=== PATIENT | male | born 1960 | race Caucasian/White ===

== ENCOUNTER 2024-06-01 09:00 | Inpatient (IN) | payer MEDICAID, OTHER ==
[2024-06-01] VITALS (7 sets, daily range): BP systolic 113–143; BP diastolic 67–105; PULSE 72–100; RESP 11–19; TEMP 98; O2SAT 95–98
[~2024-06-01] VITALS: Ht 195.6 cm; Wt 88.4 kg
[~2024-06-01 09:00] MED LIST: AMLO1TAB22 PO; ATOR10TA PO; HYDR1TAB97 PO; LOSA-534 PO; TAMS-35 PO
[2024-06-01] MEDS ORDERED: fentaNYL CITRATE 100 MCG/2 ML VL ONE (10:48)
[2024-06-01] MEDS ORDERED: LIDOCAINE 2% (LOCAL ANESTH.) PF 5ml SDV ONE (10:48)
[2024-06-01] MEDS ORDERED: SUGAMMADEX 200mg/2ml Vial (100MG/ML) IV ONE (10:48)
[2024-06-01] MEDS ORDERED: PROPOFOL 10 MG/ML 20 ML IV ONE (10:48)
[2024-06-01] MEDS ORDERED: ROCURONIUM 10MG/ML 10ML VIAL IV ONE (10:48)
[2024-06-01] MEDS ORDERED: GLYCOPYRROLATE 0.2 MG/ML 1ML VIAL ONE (10:48)
[2024-06-01] MEDS ORDERED: ONDANSETRON HCL 4 MG/2 ML VIAL ONE (10:48)
[2024-06-01] MEDS ORDERED: DexAMETHasone SOD PHOS 10MG/1ML VIAL INJ ONE (10:48)
[2024-06-01] MEDS ORDERED: KETOROLAC TROMETH 30 MG/ML 1ML VIAL ONE (10:48)
[2024-06-01] MEDS: CIPROFLOXACIN 400MG/200ML 200 ML IV ONE (10:52)
[2024-06-01] MEDS ORDERED: ePHEDrine SULFATE 50 MG/ML AMP ONE (11:22)
[2024-06-01] MEDS ORDERED: ESMOLOL HCL 10 ML IV ONE (12:11)
--- NOTE | 2024-06-01 12:39 | POSTOP ---
Post-Operative Note Post-Operative Note Preop Diagnosis Left renal calculus, 2.5 cm Left ureteral stent Postop Diagnosis: Same Left retroperitoneal ureteral extravasation Operation performed Left ureteroscopy/pyeloscopy with laser lithotripsy and vacuum suction removal of stones Cystoscopy with left retrograde pyelogram Specimen Left renal calculi fragments Anesthesia: General Anesthesiologist: Davian Stovall, CHRISTMAS [employer]AD[employer] Surgeon Stephen Driver Complications & Mgmt The procedure for the kidney stone management was uneventful. Post treatment stent placement resulted in retroperitoneal extravasation and loss of access. Postoperatively patient will be consulted for left nephrostomy tube placement and possible left antegrade stent placement per Interventional Radiology Additional Remarks Left renal calculus was successfully managed with CVAC laser lithotripsy Date 06/01/24 Time 12:35 STEPHEN DRIVER MD Jun 01, 2024 12:38
[2024-06-01] MEDS ORDERED: NALOXONE HCL 0.4 MG/ML VIAL IV PRN (12:45)
[2024-06-01] MEDS ORDERED: oxyCODONE HCL 5MG TAB PO PRN (12:45)
[2024-06-01] MEDS ORDERED: FLUMAZENIL 0.1 MG/ML INJ 10ML MDV IV PRN (12:45)
[2024-06-01] MEDS ORDERED: fentaNYL CITRATE 100 MCG/2 ML VL IV PRN (12:45)
[2024-06-01] MEDS ORDERED: ONDANSETRON HCL 4 MG/2 ML VIAL IV PRN (12:45)
[2024-06-01] MEDS ORDERED: ePHEDrine SULFATE 50 MG/ML AMP IV PRN (12:45)
[2024-06-01] MEDS ORDERED: NITROGLYCERIN 0.4 MG SL TAB SL PRN (12:45)
[2024-06-01] MEDS ORDERED: hydrALAZINE HCL 20 MG/ML VL IV PRN (12:45)
[2024-06-01] MEDS ORDERED: MORPHINE SULFATE INJ 2 MG/ml SYRG IV PRN (12:45)
[2024-06-01] MEDS: HYDROmorphone HCL 2 MG/ML VL/or syr IV PRN ×2 (13:12→22:42)
--- NOTE | 2024-06-01 13:30 | DVH ---
Exam: CT CT AB PEL WO CON-NO ORAL OR IV History: left retrograde extravasation Comparison Study: None Technique: Multidetector spiral CT of the abdomen and pelvis was performed from lung bases to pubic symphysis. Imaging was performed without IV contrast. Axial, coronal and sagittal multiplanar reform ats were obtained from the axial data set by the technologist. Radiation dose : Abdomen/Pelvis: CTDIvol 11 mGy, DLP 635.15 mGy*cm. Findings: Evaluation of solid organs is limited due to lack of intravenous contrast use. Lung Bases: No acute or significant lung base finding. Normal heart size. No pleural or pericardial effusion. Liver: Multiple hepatic cysts. Gallbladder and biliary Tree: Unremarkable Spleen: Unremarkable Pancreas: The pancreas is grossly normal in appearance. Adrenal Glands: Unremarkable Kidneys: Moderate to severe left hydronephrosis. Extravasation of contrast tracking along the left ur eter. Small amount of air in the left collecting system. Right kidney appears unremarkable. Bladder: Bladder is decompressed with a Vaz catheter and cannot be adequately assessed. Bowel: The stomach is grossly normal in appearance. Small bowel and colon are normal in caliber and d istribution. Normal appendix is visualized in the right lower quadrant without findings of appendici tis. Ascites: Absent Lymphadenopathy: No mesenteric, retroperitoneal or periportal lymphadenopathy. Abdominal wall and Mesentery: Unremarkable. Vasculature: The visualized abdominal aorta is normal in size and caliber. There is extensive athero sclerotic calcification of the aorta and its branches. Evaluation of abdominal and pelvic vessels is limited due to lack of intravenous contrast. Pelvic Organs: Unremarkable Musculoskeletal: Levoscoliosis with associated degenerative disease. IMPRESSION: 1. Moderate to severe left hydronephrosis. Extravasated contrast along the course of the left ureter suggests injury/leak. Clinical correlation and continued follow-up is recommended. Consider nephrost prasanna tube placement wall ureter/collecting system is healing. Radiation optimization: All CT scans at this facility use at least one of these dose optimization sammy hniques: Automated exposure control mA and/or kV adjustment per patient size (includes targeted exams where dose is matched to clinical indication) or iterative reconstruction. HS:Y
[2024-06-01] MEDS ORDERED: KETAMINE 50mg/ML 1ml syringe IV ONE (13:56)
[2024-06-01] MEDS: IODIXANOL 320MG/ML 100ML BTL IV ONE (15:12)
[2024-06-01] MEDS: MIDAZOLAM HCL 2MG/2ML 2ml VIAL (1mg/ml) ONE (16:31)
[2024-06-01] MEDS: fentaNYL CITRATE 100 MCG/2 ML VL ONE (16:31)
--- NOTE | 2024-06-01 16:34 | DVH ---
C-ARM FLUOROSCOPY: PROCEDURE: Left lithotripsy FLUOROSCOPY TIME: : 57.0 seconds DAP: 38.24 mgy FINDINGS: Spot intraoperative C arm radiographs demonstrating left lithotripsy. IMPRESSION: Please refer to surgical report for detailed findings.
[2024-06-01] MEDS: LIDOCAINE 2%HCL (LOCAL ANESTH.) INJ 20ML MDV ONE (16:37)
--- NOTE | 2024-06-01 17:23 | DVHINCON2 ---
Date of service: Jun 01, 2024 Referring Physician Hospitalist Reason for Consultation Left ureteral injury resulting in extravasation History of Present Illness Patient underwent left ureteroscopy/pyelosocpy with CVAC laser lithotripsy (with suction). Surgery proceeded well and patient is stonefree. During stent placement, guidewire access was lost and pulled out. I could not replace the guidewire due to extravasation of contrast due to proximal ureteral injury. Patient is admtted for radiology consultation and IR service for left PNT placement. Past Medical History Kidney stones Past Surgical History Left URSLL CVAC lithotrispy today. Previous cystoscopy with stent placement and left ESWL Allergies: Coded Allergies: NO KNOWN ALLERGIES (Unverified , 05/31/24) Home Meds Reported Medications Atorvastatin Calcium (Lipitor) Unknown Strength Tab, PO DAILY, TAB 05/31/24 Amlodipine Besylate (Amlodipine Besylate) Unknown Strength Tab, PO DAILY, TAB 05/31/24 Hydrocodone-Acetaminophen (Hydrocodone/Acetaminophen 5-325 mg) 1 Tab Tab, 1 TAB PO PRN, TAB 05/31/24 Tamsulosin Hcl (Flomax) 0.4 Mg Cap, 0.4 MG PO DAILY, CAP 05/31/24 Losartan Potassium (Losartan Potassium) 50 Mg Tab, 50 MG PO DAILY, TAB 05/31/24 Current Medications Current Medications Medications (Trade) Dose Ordered Sig/Emmy Route PRN Reason Start Time Stop Time Status Last Admin Nitroglycerin (Ntrostat Sublingual) 0.4 mg Q5MINP PRN SL FOR CHEST PAIN 06/01/24 12:45 Morphine Sulfate 2 mg Q30M PRN IV FOR CHEST PAIN 06/01/24 12:45 Ondansetron HCl (Zofran) 4 mg ONCE PRN IV NAUSEA / VOMITING 06/01/24 12:45 06/01/24 12:50 DC Naloxone HCl (Narcan) 0.4 mg Q10M PRN IV NARCOTIC REVERSAL 06/01/24 12:45 06/01/24 13:06 DC Flumazenil (Romazicon Injection) 0.2 mg ONCE PRN IV BENZODIAZEPINE REVERSAL 06/01/24 12:45 06/01/24 12:49 DC Hydralazine HCl (Apresoline Injection) 5 mg Q10M PRN IV SBP>160 06/01/24 12:45 06/01/24 13:36 DC Ephedrine Sulfate (ePHEDrine SULFATE) 10 mg Q10M PRN IV SBP LESS THAN 90 06/01/24 12:45 06/01/24 13:26 DC Fentanyl Citrate 25 mcg Q1HP PRN IV BREAKTHROUGH PAIN (7-10) 06/01/24 12:45 06/01/24 12:49 DC Hydromorphone HCl (Dilaudid Injection) 0.5 mg Q10M PRN IV SEVERE PAIN (7-10 PAIN SCALE) 06/01/24 12:45 06/01/24 13:26 DC Oxycodone HCl 10 mg ONCE PRN PO MODERATE PAIN (4-6 PAIN SCALE) 06/01/24 12:45 06/01/24 13:00 DC Review of Systems Left flank pain Vital Signs Vital Signs Date Time Temp Pulse Resp B/P (MAP) Pulse Ox O2 Delivery O2 Flow Rate FiO2 06/01/24 10:08 97.7 77 20 158/98 (118) 97 97.7 Physical Exam Vaz in place with CBI in progress Labs/Diagnostic Data Labs Test 06/01/24 15:59 Range/Units PATIENT: ADAM SEBASTIAN ACCT: [id number] UNIT: [id number] : 1960 LOC: OVERFLOW ROOM / BED: [address] [place] [address] / A AGE / SEX: 64 / M ADM STATUS: ADM IN SERVICE 1240 ORDERING PHYSICIAN: STEPHEN DRIVER MD PROCEDURE(s): ABPL - CT AB PEL WO CON-NO ORAL OR IV REASON: left retrograde extravasation ORDER NUMBER(s): [id number], ACCESSION NUMBER(s): [id number] Exam: CT CT AB PEL WO CON-NO ORAL OR IV History: left retrograde extravasation Comparison Study: None Technique: Multidetector spiral CT of the abdomen and pelvis was performed from lung bases to pubic symphysis. Imaging was performed without IV contrast. Axial, coronal and sagittal multiplanar reformats were obtained from the axial data set by the technologist. Radiation dose : Abdomen/Pelvis: CTDIvol 11 mGy, DLP 635.15 mGy*cm. Findings: Evaluation of solid organs is limited due to lack of intravenous contrast use. Lung Bases: No acute or significant lung base finding. Normal heart size. No pleural or pericardial effusion. Liver: Multiple hepatic cysts. Gallbladder and biliary Tree: Unremarkable Spleen: Unremarkable Pancreas: The pancreas is grossly normal in appearance. Adrenal Glands: Unremarkable Kidneys: Moderate to severe left hydronephrosis. Extravasation of contrast tracking along the left ureter. Small amount of air in the left collecting sy stem. Right kidney appears unremarkable. Bladder: Bladder is decompressed with a Vaz catheter and cannot be adequately assessed. Bowel: The stomach is grossly normal in appearance. Small bowel and colon are normal in caliber and distribution. Normal appendix is visualized in the right lower quadrant without findings of appendicitis. Ascites: Absent Lymphadenopathy: No mesenteric, retroperitoneal or periportal lymphadenopathy. Abdominal wall and Mesentery: Unremarkable. Vasculature: The visualized abdominal aorta is normal in size and caliber. There is extensive atherosclerotic calcification of the aorta and its branches. Evaluation of abdominal and pelvic vessels is limited due to lack of intravenous contrast. Pelvic Organs: Unremarkable Musculoskeletal: Levoscoliosis with associated degenerative disease. IMPRESSION: 1. Moderate to severe left hydronephrosis. Extravasated contrast along the course of the left ureter suggests injury/leak. Clinical correlation and continued follow-up is recommended. Consider nephrostomy tube placement wall ureter/collecting system is healing. Radiation optimization: All CT scans at this facility use at least one of these dose optimization techniques: Automated exposure control mA and/or kV adjustment per patient size (includes targeted exams where dose is matched to clinical indication) or iterative reconstruction. HS:Y ATED BY: JOSÉ MIGUEL NATION MD DICTATED DATE/TIME: 06/01/24 1327 SIGNED BY: JOSÉ MIGUEL NATION MD SIGNED DATE/TIME: 06/01/24 1327 CC: Assessment Left renal stone, s/p lithotripsy Left ureteral extravasation Left hydronephrosis, severe Plan/Recommendation Left PNT, possible antegrade ureteral stent placement per IR service Plan discussed with: Patient, Other STEPHEN DRIVER MD Jun 01, 2024 17:23
[2024-06-01] MEDS: hydrALAZINE HCL 20 MG/ML VL ONE (17:28)
[2024-06-01] MEDS: HYDROmorphone HCL 2 MG/ML VL/or syr ONE (17:29)
[2024-06-01] MEDS ORDERED: LIDOCAINE 2% TOPICAL JELLY 5 ML URJT TOP PRN (18:45)
--- NOTE | 2024-06-01 20:22 | DVH ---
XY PERCUTANEOUS NEPHROSTOMY, HISTORY: PERC DRAIN INSERTION PROCEDURE: Informed consent was obtained. The patient was placed on the fluoroscopic table in a prone position and IV sedation administered. The left flank was prepped with chlorhexidine which was allow ed to dry and draped in the usual sterile fashion. Time out was performed and the soft tissues infilt rated with 1% lidocaine local anesthetic. A 21 gauge Accu Stick needle was then advanced under ultras ound guidance from a posterolateral approach into the upper pole calyx, and a small amount of contras t was injected under fluoroscopy to confirm positioning. Over a mandril wire, exchange was made to a non-vascular access set, through which was advanced an 0.035 wire. Wire and catheter were advanced do wn the ureter and into the bladder. Following serial dilation, an 8 [place] Islander 24 cm nephroureteral stent was placed. An antegrade nephrostogram was performed. The catheter was secured in place and connecte d to gravity drainage. A sterile dressing was applied. No immediate complication was identified. DAP 6.62 FLUOROSCOPY TIME: 4.9 minutes. CONTRAST USED: 15 mL. SEDATION: Dr. Gaby Roman was personally responsible for the administration of moderate sedation during the procedure performed, including the use of an independent trained observer who had no other duties during the procedure. The drugs utilized were IV fentanyl and versed (see nursing log for details). The total time of supervision by the attending physician was approximately 60 minutes. FINDINGS: Mild to moderate dilation of the left renal collecting system. Irregular contour of the ur eter which could be from injury. Placement of a 8 [place] Islander x 24 cm nephroureteral stent via an upper po le access into the left kidney. IMPRESSION: Placement of an 8 [place] Islander x 24 cm nephroureteral stent via an upper pole access into the left kidney. Irregular contour of the ureter which could be from injury.
--- NOTE | 2024-06-01 20:22 | DVH ---
XY PERCUTANEOUS NEPHROSTOMY, HISTORY: PERC DRAIN INSERTION PROCEDURE: Informed consent was obtained. The patient was placed on the fluoroscopic table in a prone position and IV sedation administered. The left flank was prepped with chlorhexidine which was allow ed to dry and draped in the usual sterile fashion. Time out was performed and the soft tissues infilt rated with 1% lidocaine local anesthetic. A 21 gauge Accu Stick needle was then advanced under ultras ound guidance from a posterolateral approach into the upper pole calyx, and a small amount of contras t was injected under fluoroscopy to confirm positioning. Over a mandril wire, exchange was made to a non-vascular access set, through which was advanced an 0.035 wire. Wire and catheter were advanced do wn the ureter and into the bladder. Following serial dilation, an 8 Nigerien 24 cm nephroureteral stent was placed. An antegrade nephrostogram was performed. The catheter was secured in place and connecte d to gravity drainage. A sterile dressing was applied. No immediate complication was identified. DAP 6.62 FLUOROSCOPY TIME: 4.9 minutes. CONTRAST USED: 15 mL. SEDATION: Dr. Gaby Roman was personally responsible for the administration of moderate sedation during the procedure performed, including the use of an independent trained observer who had no other duties during the procedure. The drugs utilized were IV fentanyl and versed (see nursing log for details). The total time of supervision by the attending physician was approximately 60 minutes. FINDINGS: Mild to moderate dilation of the left renal collecting system. Irregular contour of the ur eter which could be from injury. Placement of a 8 Nigerien x 24 cm nephroureteral stent via an upper po le access into the left kidney. IMPRESSION: Placement of an 8 Nigerien x 24 cm nephroureteral stent via an upper pole access into the left kidney. Irregular contour of the ureter which could be from injury.
[2024-06-02] VITALS (9 sets, daily range): BP systolic 124–172; BP diastolic 70–98; PULSE 75–89; RESP 13–20; TEMP 97.3–98.9; O2SAT 93–100
[2024-06-02] MEDS: HYDROcodone-ACET 10/325MG TAB PO PRN (15:55)
--- NOTE | 2024-06-02 16:58 | DVHHP2 ---
Review of Systems Allergies: Coded Allergies: NO KNOWN ALLERGIES (Unverified , 05/31/24) Medications Current Medications Medications Dose Ordered Sig/Emmy Route Start Time Stop Time Status Last Admin Dose Admin Nitroglycerin 0.4 mg Q5MINP PRN SL 06/01/24 12:45 Morphine Sulfate 2 mg Q30M PRN IV 06/01/24 12:45 Lidocaine HCl 5 ml Q8HPRN PRN TOP 06/01/24 18:45 Cefazolin Sodium 50 ml @ 100 mls/hr Q8HR IV 06/02/24 22:00 Acetaminophen/ Hydrocodone Bitart 1 tab Q6HP PRN PO 06/02/24 15:00 06/02/24 15:55 1 TAB Exam Vital Signs Vital Signs Date Time Temp Pulse Resp B/P (MAP) Pulse Ox O2 Delivery O2 Flow Rate FiO2 06/02/24 12:59 98.9 77 20 155/89 (111) 94 98.9 06/02/24 12:32 Mask 10.0 100 Labs/Xrays Labs Test 06/01/24 15:59 Range/Units Assessment/Plan Assessment/Plan SEE DICTATED NOTE Plan discussed with: Patient Date of Service: Jun 02, 2024 Billing Provider: MONA ZUNIGA MD Common Visit Codes: 51090-[id number] INP/OBS CARE (HIGH) Secondary Visit Codes: [id number] CARE PLAN 30 MINUTES MONA ZUNIGA MD Jun 02, 2024 16:58
--- NOTE | 2024-06-02 17:12 | DVHHP ---
ADMIT DATE: 06/02/2024 HISTORY OF PRESENT ILLNESS: The patient is a 64-year-old gentleman who was admitted after he had a cystoscopy with left retrograde pyelogram, laser lithotripsy and subsequent left retroperitoneal and ureteral extravasation. The patient at this time denies any significant pain. No chest pain. No shortness of breath. No nausea or vomiting. REVIEW OF SYSTEMS: Review of rest of systems is otherwise currently negative. PAST MEDICAL HISTORY: Significant for hypertension, hyperlipidemia. MEDICATIONS: He takes amlodipine, losartan and atorvastatin. ALLERGIES: No known drug allergies. SOCIAL HISTORY: He quit smoking, but vapes. Denies alcohol intake. FAMILY HISTORY: Negative. PHYSICAL EXAMINATION: GENERAL: The patient is awake, alert. VITAL SIGNS: Temperature of 98.9, pulse 77 per minute, blood pressure 155/98. SHEENT: Unremarkable. NECK: There is no JVD, no pedal edema. LUNGS: Equal bilaterally. No added sounds. CARDIOVASCULAR: S1, S2 is regular. No murmurs. ABDOMEN: Soft. There is no organomegaly. NEUROLOGIC: Nonfocal. GENITOURINARY: The patient has a left-sided nephrostomy tube. ASSESSMENT AND PLAN: * Status post laser lithotripsy with left proximal ureteral injury. The patient is status post nephrostomy tube. KUB is pending to check for placement of stent with a nephrostomy tube. * Hypertension, for which he will resume amlodipine. * Hyperlipidemia. * History of vaping. * Advanced care planning: The patient is a FULL CODE. Time spent was 19 minutes. MD BINTA Armenta/ROSAMARIA TID: [id number] RECEIPT: [id number]
--- NOTE | 2024-06-02 17:44 | DVH ---
EXAM: XY KUB ABDOMEN SINGLE VIEW HISTORY: stent placement COMPARISON: XY KUB ABDOMEN SINGLE VIEW on DOS: 06/01/24 TECHNIQUE: Single AP of the abdomen and pelvis was obtained. Findings: Frontal view of the abdomen demonstrates multiple gaseous distended loops of bowel. No visualized shawn al calculi. There is no evidence of an acute fracture, dislocation, blastic, or lytic lesions. The visualized portions of the lung bases are unremarkable. Left sided double J nephroureteral stent and percutaneous nephrostomy tube. No superficial soft tissue abnormalities. Impression: 1. Multiple gaseous distended loops of bowel without obstruction. 2. Left sided double J nephroureteral stent and percutaneous nephrostomy tube. 3. No visualized renal calculi.
[2024-06-02] MEDS: amLODIPine BESYLATE 5 MG TAB PO ONE (18:41)
[2024-06-02] MEDS: ceFAZolin 1GM/50ML 50 ML IV SCH (22:00)
[2024-06-03] VITALS (8 sets, daily range): BP systolic 124–166; BP diastolic 81–97; PULSE 63–84; RESP 18–94; TEMP 97.3–98.7; O2SAT 93–96
[2024-06-03 06:43] LABS: Alkaline Phosphatase 58 U/L (46-116); Anion Gap 8 (5-15); BUN/Creatinine Ratio 16.5 (10.0-20.0); Blood Urea Nitrogen 14 mg/dL (9-23); Calcium 9.5 mg/dL (8.7-10.4); Carbon Dioxide 23 mmol/L (20-31); Glucose 93 mg/dL (74-106); Potassium 3.7 mmol/L (3.5-5.1); Sodium 139 mmol/L (136-145)
[2024-06-03 06:45] LABS: Alanine Aminotransferase < 9 U/L (7-40); Aspartate Aminotransferase 11 U/L (13-40); Bilirubin, Total 0.7 mg/dL (0.2-1.0); Chloride 108 mmol/L (98-107); Total Protein 6.3 g/dL (5.7-8.2)
[2024-06-03 07:03] LABS: Basophils # (auto) 0 10 ^3/uL (0-0.2); Basophils % (auto) 0.3 % (0.0-2.0); Eosinophils # (auto) 0.1 10 ^3/uL (0-0.8); Eosinophils % (auto) 1.1 % (0.0-7.0); Hematocrit 44.7 % (41.0-53.0); Hemoglobin 15.7 g/dL (13.5-17.5); Lymphocytes # (auto) 1.5 10 ^3/uL (0.4-5.4); Lymphocytes % (auto) 14.8 % (10.0-50.0); Mean Corpuscular Hemoglobin 32.6 pg (28.0-32.0); Mean Corpuscular Hgb Conc. 35.2 g/dL (32.0-36.0); Mean Corpuscular Volume 92.6 fL (80.0-100.0); Monocytes # (auto) 1.1 10 ^3/uL (0-1.3); Monocytes % (auto) 11.5 % (0.0-12.0); Neutrophils # (auto) 7.2 10 ^3/uL (1.6-8.6); Neutrophils % (auto) 72.3 % (37.0-80.0); Nucleated Red Blood Cells % 0.1 %; Platelet Count (auto) 220 10^3/uL (140-450); Red Blood Cells 4.82 10^6/uL (4.5-5.90); Red Cell Distribution Width 12.9 % (11.8-14.3); White Blood Cell 9.9 10^3/uL (4.4-10.8)
--- NOTE | 2024-06-03 08:56 | DVHPN2 ---
Progress Note - Dictate Date Seen: Jun 03, 2024 Medical Necessity Reason Pt with a Central, PICC or Fol: No Medical Necessity Reason Postop day 2. Status post left ureteroscopic laser lithotripsy with suction evacuation and left percutaneous nephroureteral stent placement Subjective Left flank pain vital signs Vital Sign Date Time Temp Pulse Resp B/P (MAP) Pulse Ox O2 Delivery O2 Flow Rate FiO2 06/03/24 05:00 98.0 72 18 134/96 (109) 96 98.0 06/02/24 20:00 Room Air* 0 21 Total Intake and Output 06/02/24 06/02/24 06/03/24 15:00 23:00 07:00 Intake Total 400 ml 250 ml Output Total 5500 ml 4525 ml Balance -5100 ml -4275 ml medications Current Medications Medications Dose Ordered Sig/Emmy Route Start Time Stop Time Status Last Admin Dose Admin Nitroglycerin 0.4 mg Q5MINP PRN SL 06/01/24 12:45 Morphine Sulfate 2 mg Q30M PRN IV 06/01/24 12:45 Lidocaine HCl 5 ml Q8HPRN PRN TOP 06/01/24 18:45 Cefazolin Sodium 50 ml @ 100 mls/hr Q8HR IV 06/02/24 22:00 Acetaminophen/ Hydrocodone Bitart 1 tab Q6HP PRN PO 06/02/24 15:00 06/03/24 04:12 1 TAB Amlodipine Besylate 10 mg DAILY PO 06/03/24 10:00 objective KUB reviewed and the nephroureteral stent is in good position. laboratory and microbiology Laboratory Tests 06/03/24 05:22 Test 06/03/24 05:22 Range/Units Serum Glucose 93 74-106 mg/dL Problem List The extent of the left ureteral injury, possible perforation versus tear is difficult to know based on the current studies. He will need to undergo stent removal and ureteroscopy in 2-3 weeks Assessment/Plan Left renal stone, s/p lithotripsy Left ureteral extravasation Left hydronephrosis, severe- left percutaneous nephroureteral stent placement We will discharge when stable DC Vaz Follow-up for outpatient procedure for stent removal and ureteroscopy Plan discussed with: Patient STEPHEN DRIVER MD Jun 03, 2024 08:56
[2024-06-03] MEDS: amLODIPine BESYLATE 5 MG TAB PO SCH (10:00)
--- NOTE | 2024-06-03 14:46 | DVHDS2 ---
Discharge Summary Date of Admission Jun 01, 2024 at 12:33 Date of Discharge: Jun 03, 2024 Labs/Diagnostic Data: Laboratory Results Test 06/03/24 05:22 06/01/24 15:59 White Blood Count 9.9 10^3/uL (4.4-10.8) Red Blood Count 4.82 10^6/uL (4.5-5.90) Hemoglobin 15.7 g/dL (13.5-17.5) Hematocrit 44.7 % (41.0-53.0) Mean Corpuscular Volume 92.6 fL (80.0-100.0) Mean Corpuscular Hemoglobin 32.6 pg (28.0-32.0) Mean Corpuscular Hemoglobin Concent 35.2 g/dL (32.0-36.0) Red Cell Distribution Width 12.9 % (11.8-14.3) Platelet Count 220 10^3/uL (140-450) Mean Platelet Volume 8.5 fL (6.9-10.8) Neutrophils (%) (Auto) 72.3 % (37.0-80.0) Lymphocytes (%) (Auto) 14.8 % (10.0-50.0) Monocytes (%) (Auto) 11.5 % (0.0-12.0) Eosinophils (%) (Auto) 1.1 % (0.0-7.0) Basophils (%) (Auto) 0.3 % (0.0-2.0) Neutrophils # (Auto) 7.2 10 ^3/uL (1.6-8.6) Lymphocytes # (Auto) 1.5 10 ^3/uL (0.4-5.4) Monocytes # (Auto) 1.1 10 ^3/uL (0-1.3) Eosinophils # (Auto) 0.1 10 ^3/uL (0-0.8) Basophils # (Auto) 0 10 ^3/uL (0-0.2) Nucleated Red Blood Cells 0.1 % Sodium Level 139 mmol/L (136-145) Potassium Level 3.7 mmol/L (3.5-5.1) Chloride Level 108 mmol/L (98-107) Carbon Dioxide Level 23 mmol/L (20-31) Anion Gap 8 (5-15) Blood Urea Nitrogen 14 mg/dL (9-23) Creatinine 0.85 mg/dL (0.700-1.30) Glomerular Filtration Rate Calc 97 mL/min (>90) BUN/Creatinine Ratio 16.5 (10.0-20.0) Serum Glucose 93 mg/dL (74-106) Calcium Level 9.5 mg/dL (8.7-10.4) Total Bilirubin 0.7 mg/dL (0.2-1.0) Aspartate Amino Transferase (AST) 11 U/L (13-40) Alanine Aminotransferase (ALT) < 9 U/L (7-40) Alkaline Phosphatase 58 U/L (46-116) Total Protein 6.3 g/dL (5.7-8.2) Albumin 4.0 g/dL (3.2-4.8) Other Laboratory Tests 06/03/24 05:22 Brief Hx & Hospital Course: see dictated note Condition at Discharge: Fair Final Diagnosis/Problems List left renal stent Discharge Disposition: Home Discharge Instruct/Medications Diet: Cardiac 2g Na,low cholest Activity: No Restrictions, As Tolerated Follow Up/Referral: fu with dr Crawford/pcp Medications: resume home meds rest meds per dr Crawford Discharge Statement: "Patient was advised to return to the ER or call 911 if any headaches, dizziness, shortness of breath, chest pain, abdominal pain, bleeding, fevers, or worsening of medical condition. Patient was counseled about treatment plan, medications, possible side effects, patientverbalized understanding. All questions were answered to the best of my ability. This discharge took greater then 30 minutes in planning, reviewing documentation, counseling the patient, and discussing with other team members." ASSESSMENT ASSESSMENT Assessment left renal stent Date of Service: Jun 03, 2024 Billing Provider: MONA ZUNIGA MD Common Visit Codes: 00914-ECO/OBS DISCH DAY >30min MONA ZUNIGA MD Jun 03, 2024 14:46
--- NOTE | 2024-06-03 15:16 | DVHDS ---
DATE OF DISCHARGE: 06/03/2024 HISTORY OF PRESENT ILLNESS: The patient is a 64-year-old gentleman, who underwent left cystoscopy with pyelogram and laser lithotripsy, and subsequently developed injury to the proximal ureter. The patient has history of hyperlipidemia and hypertension. HOSPITAL COURSE: The patient was seen in Nephrology consult by Dr. Crawford. The patient had a CT of abdomen and pelvis that showed moderate to severe left hydronephrosis. The patient had a nephrostogram with placement of a nephroureteral stent by Dr. Mcdaniel. The patient as per my discussion with Dr. Crawford can now be discharged home. He will be on medications as prescribed by Dr. Crawford. FINAL DIAGNOSES: Therefore, * Status post laser lithotripsy with left proximal ureteral injury, status post left ureteral stent. * Hypertension. * Hyperlipidemia. * History of vaping. Time spent in discharge planning, and review of plan with the patient and access consultant was 37 minutes. MD BINTA Armenta/STEFAN TID: [id number] RECEIPT: [id number]
[2024-06-04] MEDS ORDERED: LACT10SO3 PO (11:17)
== END 2024-06-03 17:00 | disposition home or self-care (01) | DRG 443 ==
LOC: SUR 09:00 → OVERFLOW 12:33 → WEST WING 19:15
PROVIDERS: ADMIT Urology; ATTEND Internal Medicine
PROC: BT1F1ZZ Fluoroscopy of Left Kidney, Ureter and Bladder using Low Osmolar Contrast (ICD-10-PCS; 2024-06-01)
PROC: BT121ZZ Fluoroscopy of Left Kidney using Low Osmolar Contrast (ICD-10-PCS; 2024-06-01)
PROC: 0T773DZ Dilation of Left Ureter with Intraluminal Device, Percutaneous Approach (ICD-10-PCS; 2024-06-01)
PROC: 0TC18ZZ Extirpation of Matter from Left Kidney, Via Natural or Artificial Opening Endoscopic (ICD-10-PCS; principal; 2024-06-01 11:01)
DX: N13.2 Hydronephrosis with renal and ureteral calculous obstruction (principal); S37.19XA Other injury of ureter, initial encounter; E78.5 Hyperlipidemia, unspecified; I10 Essential (primary) hypertension; Z87.891 Personal history of nicotine dependence; Z79.899 Other long term (current) drug therapy; X58.XXXA Exposure to other specified factors, initial encounter; Y93.89 Activity, other specified; Y92.89 Other specified places as the place of occurrence of the external cause; Y99.8 Other external cause status
CPT/HCPCS: 36415; 74018; 74176; 74425; 76000; 76942; 80053; 82360; 85025; 99152; G0378; J1100; J1885; J2003; J2250; J2405; J2704; Q9967

== ENCOUNTER 2024-06-04 07:04 | Emergency (ER) | payer MEDICAID ==
[~2024-06-04] VITALS: Ht 195.6 cm; Wt 87.6 kg
[2024-06-04 08:00] LABS: Basophils # (auto) 0.1 10 ^3/uL (0-0.2); Basophils % (auto) 0.5 % (0.0-2.0); Eosinophils # (auto) 0.2 10 ^3/uL (0-0.8); Eosinophils % (auto) 1.2 % (0.0-7.0); Hematocrit 51.7 % (41.0-53.0); Hemoglobin 17.5 g/dL (13.5-17.5); Lymphocytes # (auto) 1.3 10 ^3/uL (0.4-5.4); Lymphocytes % (auto) 9.6 % (10.0-50.0); Mean Corpuscular Hemoglobin 31.7 pg (28.0-32.0); Mean Corpuscular Hgb Conc. 33.8 g/dL (32.0-36.0); Mean Corpuscular Volume 93.8 fL (80.0-100.0); Monocytes # (auto) 1.6 10 ^3/uL (0-1.3); Neutrophils # (auto) 10.3 10 ^3/uL (1.6-8.6); Neutrophils % (auto) 76.7 % (37.0-80.0); Platelet Count (auto) 281 10^3/uL (140-450); Red Blood Cells 5.51 10^6/uL (4.5-5.90); Red Cell Distribution Width 12.8 % (11.8-14.3); White Blood Cell 13.4 10^3/uL (4.4-10.8)
[2024-06-04 08:05] LABS: Chloride 105 mmol/L (98-107); Potassium 3.6 mmol/L (3.5-5.1); Sodium 138 mmol/L (136-145)
[2024-06-04 08:06] LABS: Anion Gap 11 (5-15); Calcium 10.3 mg/dL (8.7-10.4); Carbon Dioxide 22 mmol/L (20-31)
[2024-06-04 08:11] LABS: BUN/Creatinine Ratio 13.6 (10.0-20.0); Blood Urea Nitrogen 14 mg/dL (9-23)
[2024-06-04 08:13] LABS: Glucose 114 mg/dL (74-106)
[2024-06-04 08:22] VITALS: PULSE 104; RESP 20; TEMP 97.2; O2SAT 95
--- NOTE | 2024-06-04 08:56 | ED.PDOC ---
General HPI Comments A 64 YEAR OLD MALE PRESENTS TO THE ED WITH COMPLAINT OF URINARY RETENTION AND CONSTIPATION. PATIENT STATES HE RECENTLY ADMITTED 3 DAYS AGO FOR AN OBSTRUCTING 2.5 CM LEFT RENAL STONE WHERE HE HAD A NEPHROSTOMY PLACED AND A LITHOTRIPSY PROCEDURE DONE. PATIENT REPORTS HE IS NOW EXPERIENCING URINARY RETENTION AND HAS ALSO HAD CONSTIPATION FOR THE PAST 3 DAYS DUE TO THE MEDICATION THAT THEY PRESCRIBED HIM. PATIENT DENIES HEMATURIA, FEVER, CHILLS, SHORTNESS OF BREATH, CHEST PAIN, ABDOMINAL PAIN, NAUSEA, VOMITING, HEADACHE, OR OTHER COMPLAINTS. NO OTHER SYMPTOMS OR MODIFYING FACTORS AT THIS TIME. PATIENT IS ALERT, ORIENTED X 4, AND HAS STEADY GAIT. Chief Complaint: Urinary Time Seen by MD: 08:05 Reviewed notes: Nurses Notes, Medications, Allergies Allergies: Coded Allergies: NO KNOWN ALLERGIES (Unverified , 05/31/24) Home Meds Active Scripts Lactulose (Lactulose) 10 Gm/15 Ml Em, 30 ML PO BID PRN, #300 ML Prov:LOPEZ MOREL 06/04/24 Reported Medications Atorvastatin Calcium (Lipitor) Unknown Strength Tab, PO DAILY, TAB 05/31/24 Amlodipine Besylate (Amlodipine Besylate) Unknown Strength Tab, PO DAILY, TAB 05/31/24 Hydrocodone-Acetaminophen (Hydrocodone/Acetaminophen 5-325 mg) 1 Tab Tab, 1 TAB PO PRN, TAB 05/31/24 Tamsulosin Hcl (Flomax) 0.4 Mg Cap, 0.4 MG PO DAILY, CAP 05/31/24 Losartan Potassium (Losartan Potassium) 50 Mg Tab, 50 MG PO DAILY, TAB 05/31/24 Information Source: Patient Mode of Arrival: Ambulatory Severity: Moderate Inability to void: None Timing: Days Duration: Since onset, Other Prehospital treatment: None Onset: Spontaneous Symptoms: Inability to void, Other (CONSTIPATION) History of: Kidney stone Location: None Penile discharge: None Modifying factors: None associated signs and symptoms: Other (CONSTIPATION ) Past Medical History PAST MEDICAL HISTORY: High Lipids, HTN, Kidney Stones Surgical History: Denies all surgeries Family History Family History: Reviewed,noncontributory to illness Social History Smoker: Non-Smoker Alcohol: Denies ETOH Use Drugs: Denies Drug Use Lives In: Home Constitutional: denies: chills, diaphoresis, fatigue, fever, malaise, sweats, weakness, others EENTM: denies: blurred vision, double vision, ear bleeding, ear discharge, ear drainage, ear pain, ear ringing, eye pain, eye redness, hearing loss, mouth pain, mouth swelling, nasal discharge, nose bleeding, nose congestion, nose pain, photophobia, tearing, throat pain, throat swelling, voice changes, others Respiratory: denies: cough, hemoptysis, orthopnea, SOB at rest, shortness of breath, SOB with excertion, stridor, wheezing, others Cardiovascular: denies: chest pain, dizzy spells, diaphoresis, Dyspnea on exertion, edema, irregular heart beat, left arm pain, lightheadedness, palpitations, PND, syncope, others Gastrointestinal: reports: constipated; denies: abdomen distended, abdominal pain, blood streaked bowels, diarrhea, dysphagia, difficulty swallowing, hematemesis, melena, nausea, poor appetite, poor fluid intake, rectal bleeding, rectal pain, vomiting, others Genitourinary: reports: others (URINARY RETENTION); denies: burning, dysuria, flank pain, frequency, hematuria, incontinence, penile discharge, penile sore, pain, testicle pain, testicle swelling, urgency Neurological: denies: dizziness, fainting, headache, left sided numbness, left sided weakness, numbness, paresthesia, pre-existing deficit, right sided numbness, right sided weakness, seizure, speech problems, tingling, tremors, weakness, others Musculoskeletal: denies: back pain, gout, joint pain, joint swelling, muscle pain, muscle stiffness, neck pain, others Integumetry: denies: bruises, change in color, change in hair/nails, dryness, laceration, lesions, lumps, rash, wounds, others Allergic/Immunocompromised: denies: Difficulty Healing, Frequent Infections, Hives, Itching, others Hematologic/Lymphatic: denies: anemia, blood clots, easy bleeding, easy bruising, swollen glands, others Endocrine: denies: excessive hunger, excessive sweating, excessive thirst, excessive urination, flushing, intolerance to cold, intolerance to heat, unexplained weight gain, unexplained weight loss, others Psychiatric: denies: anxiety, bipolar disorder, depression, hopeless, panic disorder, schizophrenia, sleepless, suicidal, others All Other Systems: Reviewed and Negative Physical Exam General Appearance: No Apparent Distress, Normal HEENT: Normal ENT Inspection, PERRL/EOMI, Pharynx Normal, TMs Normal Neck: Full Range of Motion, Non-Tender, Normal, Normal Inspection Respiratory: Chest Non-Tender, Lungs Clear, No Accessory Muscle Use, No Respiratory Distress, Normal Breath Sounds Cardiovascular: No Edema, No JVD, No Murmur, No Gallop, Normal Peripheral Pulses, Regular Rate/Rhythm Breast Exam: Deferred Gastrointestinal: No Organomegaly, Non Tender, No Pulsatile Mass, Normal Bowel Sounds, Soft, Other (NO DISTENDED GENERAL ABD, NO GUARDING AND REBOUND TENDERNESS. ) Genitalia: Deferred Pelvic: Normal External Exam, Other (BLADDE IS SOFT, NO DISTENDED. ) Rectal: Deferred Extremities: No calf tenderness, Normal capillary refill, Normal inspection, Normal range of motion, Non-tender, No pedal edema Musculoskeletal : Apperance: Normal Neurologic: Alert, [place] [employer] group leader II-XII nml as Tested, No Motor Deficits, Normal Affect, Normal Mood, No Sensory Deficits Cerebellar Function: Normal Reflexes: Normal Skin: Dry, Normal Color, Warm Peripheral Pulses: 2+ carotid (R), 2+ carotid (L) Lymphatic: No Adenopathy Was a procedure done? Was a procedure done?: No Differential Diagnosis Kidney stone (Female): N/A Kidney stone (Male): N/A Penile/Scrotal: N/A Urinary Problem (Male): Renal Failure, Urinary Retention, UTI Urinary Problem (Female): N/A X-Ray, Labs, Meds, VS Vital Signs Date Time Temp Pulse Resp B/P (MAP) Pulse Ox O2 Delivery O2 Flow Rate FiO2 06/04/24 11:35 146/90 (108) 06/04/24 08:22 97.2 104 20 109/51 (70) 95 97.2 06/04/24 08:22 104 20 95 Room Air 06/04/24 07:28 97.2 104 20 109/51 (70) 95 Lab Test 06/04/24 07:41 Range/Units White Blood Count 13.4 #H 4.4-10.8 10^3/uL Red Blood Count 5.51 4.5-5.90 10^6/uL Hemoglobin 17.5 13.5-17.5 g/dL Hematocrit 51.7 # 41.0-53.0 % Mean Corpuscular Volume 93.8 80.0-100.0 fL Mean Corpuscular Hemoglobin 31.7 28.0-32.0 pg Mean Corpuscular Hemoglobin Concent 33.8 32.0-36.0 g/dL Red Cell Distribution Width 12.8 11.8-14.3 % Platelet Count 281 140-450 10^3/uL Mean Platelet Volume 8.2 6.9-10.8 fL Neutrophils (%) (Auto) 76.7 37.0-80.0 % Lymphocytes (%) (Auto) 9.6 L 10.0-50.0 % Monocytes (%) (Auto) 12.0 0.0-12.0 % Eosinophils (%) (Auto) 1.2 0.0-7.0 % Basophils (%) (Auto) 0.5 0.0-2.0 % Neutrophils # (Auto) 10.3 H 1.6-8.6 10 ^3/uL Lymphocytes # (Auto) 1.3 0.4-5.4 10 ^3/uL Monocytes # (Auto) 1.6 H 0-1.3 10 ^3/uL Eosinophils # (Auto) 0.2 0-0.8 10 ^3/uL Basophils # (Auto) 0.1 0-0.2 10 ^3/uL Nucleated Red Blood Cells 0.0 % Sodium Level 138 136-145 mmol/L Potassium Level 3.6 3.5-5.1 mmol/L Chloride Level 105 98-107 mmol/L Carbon Dioxide Level 22 20-31 mmol/L Anion Gap 11 5-15 Blood Urea Nitrogen 14 9-23 mg/dL Creatinine 1.03 0.700-1.30 mg/dL Glomerular Filtration Rate Calc 81 >90 mL/min BUN/Creatinine Ratio 13.6 10.0-20.0 Serum Glucose 114 H 74-106 mg/dL Calcium Level 10.3 8.7-10.4 mg/dL Current Medications Medications (Trade) Dose Ordered Sig/Emmy Route Start Time Stop Time Status Last Admin Acetaminophen/ Hydrocodone Bitart ([place] 10/325MG Tab) 1 tab ONCE ONCE PO 06/04/24 10:00 06/04/24 10:07 DC 06/04/24 10:13 X-Ray, Labs, Meds, VS Comment EXTERNAL MEDICAL RECORDS REVIEWED: [NONE] INDEPENDENT HISTORIANS: [NONE] SOCIAL DETERMINANTS OF HEALTH: [NONE] LABS ORDERED: CBC, BMP, UA REVIEWED AND INTERPRETED RESULTS: NORMAL, PATIENT DID NOT PROVIDE URINE. IMAGING ORDERED: NONE TREATMENTS ORDERED: GALLARDO CATHETER PLACEMENT, [place] 10/325MG PO BLADDER SCAN WAS DONE HERE IN THE ED AND NO URINE WAS SEEN IN HIS BLADDER AT THIS TIME. PROCEDURES PERFORMED: NONE CRITICAL CARE TIME: NONE I HAVE DISCUSSED THE PATIENT WITH THE ATTENDING PHYSICIAN DR. ANDERSON AND HE AGREES WITH THE PATIENT'S PLAN OF CARE AND DISPOSITION. BASED ON HISTORY OF PRESENT ILLNESS, AND PHYSICAL EXAM, PATIENT WILL BE DISCHARGED HOME. DISCUSSED PLAN FOR DISCHARGE HOME WITH RX [LACTULOSE]. MEDICATION WARNINGS GIVEN. SHARED DECISION MAKING: DISCUSSED WITH PATIENT THAT THEIR WORKUP WAS NORMAL. PATIENT INSTRUCTED TO FOLLOW UP WITH PRIMARY CARE PROVIDER IN 1-2 DAYS FOR RE- EVALUATION OF SYMPTOMS. PATIENT VERBALIZES UNDERSTANDING TO RETURN TO ED FOR NEW OR WORSENING SYMPTOMS OR IF FOLLOW UP WITH PCP CANNOT BE OBTAINED. PATIENT FEELS COMFORTABLE GOING HOME AT THIS TIME. ALL QUESTIONS ADDRESSED AT TIME OF DISCHARGE. Time of 1ST Reevaluation: 11:44 Reevaluation 1ST: Improved Patient Education/Counseling: Diagnosis, Treatment, Need For Follow Up Family Education/Counseling: Diagnosis, Treatment, Need For Follow Up Medical Screening: No EMC Exist At This Time Departure 1 Departure Time of Disposition: 11:44 Impression: Primary Impression: Acute constipation Disposition: 01 HOME / SELF CARE / HOMELESS Condition: Stable Additional Instructions: FOLLOW-UP WITH PCP IN 1 TO 2 DAYS. TAKE MEDICATIONS PRESCRIBED. RETURN TO ED FOR ANY NEW OR WORSENING SYMPTOMS. e-Prescriptions Lactulose (Lactulose) 10 Gm/15 Ml Em 30 ML PO BID PRN, #300 ML Prov: LOPEZ MOREL 06/04/24 Discharged With: Self, Relative Critical Care Note Critical Care Time?: No Stability Stability form required: No I personally scribed for LOPEZ MOREL ([email or web address]) on 06/04/24 at 08:55. Electronically submitted by Danny Hawk ([email or web address]). I personally scribed for LOPEZ MOREL ([email or web address]) on 06/04/24 at 10:59. Electronically submitted by Danny Hawk ([email or web address]). LOPEZ MOREL Jun 04, 2024 08:55
[2024-06-04] MEDS: LIDOCAINE 2% JELLY 11ml (GLYDO) UR ONE (09:58)
[2024-06-04] MEDS: HYDROcodone-ACET 10/325MG TAB PO ONE (10:13)
[2024-06-04] MEDS ORDERED: LACT10SO3 PO (11:17)
[2024-06-04 11:35] VITALS: BP 146/90
== END 2024-06-04 11:36 | disposition home or self-care (01) ==
LOC: ER 07:04
DX: K59.09 Other constipation (principal); I10 Essential (primary) hypertension; Z79.899 Other long term (current) drug therapy; Z87.442 Personal history of urinary calculi
CPT/HCPCS: 36415; 80048; 85025